=== PATIENT | male | born 2000 | race African-American/Black ===

== ENCOUNTER 2025-04-03 10:58 | Emergency (ER) | payer OTHER ==
[~2025-04-03] VITALS: Ht 177.8 cm; Wt 82.0 kg
[2025-04-03 11:04] VITALS: TEMP 36.9; O2SAT 97
[2025-04-03 13:04] LABS: BASOPHILS % 0.8 % (0.0-2.0); EOSINOPHILS % 2.4 % (0.0-5.0); HEMATOCRIT. 40.8 % (42.0-52.0); HEMOGLOBIN. 13.6 g/dL (14.0-18.0); LYMPHOCYTES % 23.2 % (20.0-50.0); MEAN PLATELET VOLUME 7.8 fl (7.4-10.4); MONOCYTES % 7.4 % (2.0-8.0); NEUTROPHILS % 66.2 % (40.0-76.0); PLATELET 209 x1000/uL (130-400); RED BLOOD CELL COUNT 4.20 mill/uL (4.7-6.1); RED CELL DISTRIBUTION WIDTH 12.9 % (11.6-14.6)
[2025-04-03 13:14] LABS: CLARITY URINE CLEAR (CLEAR); COLOR URINE YELLOW (YELLOW); GLUCOSE URINE NEGATIVE (NEGATIVE); KETONES URINE NEGATIVE (NEGATIVE); LEUKOCYTE ESTERASE URINE NEGATIVE (NEGATIVE); NITRITE URINE NEGATIVE (NEGATIVE); OCCULT BLOOD URINE NEGATIVE (NEGATIVE); PH URINE 8.0 (4.5-8.0); PROTEIN URINE NEGATIVE (NEGATIVE); SPECIFIC GRAVITY URINE 1.005 (1.005-1.030); UROBILINOGEN URINE 0.2 E.U./dL (0.2-1.0)
[2025-04-03 13:19] LABS: CREATININE 1.2 mg/dL (0.6-1.3); UREA NITROGEN BLOOD 9 mg/dL (9-23)
[2025-04-03 13:20] LABS: ETHANOL BLOOD < 10 mg/dL (<10)
[2025-04-03 13:48] VITALS: BP 128/82; PULSE 72; RESP 16; O2SAT 100
[2025-04-03 13:51] LABS: *AMPHETAMINES SCREEN URINE NEGATIVE (NEGATIVE); *BARBITURATES SCREEN URINE NEGATIVE (NEGATIVE); *BENZODIAZEPINES SCREEN URINE NEGATIVE (NEGATIVE); *COCAINE SCREEN URINE NEGATIVE (NEGATIVE); METHADONE URINE SCREEN NEGATIVE (NEGATIVE)
[2025-04-03 13:52] LABS: CANNABINOID URINE SCREEN NEGATIVE (NEGATIVE); ECSTASY MDMA SCREEN URINE NEGATIVE (NEGATIVE); OPIATES URINE SCREEN NEGATIVE (NEGATIVE); PHENCYCLIDINE URINE SCREEN NEGATIVE (NEGATIVE)
== END 2025-04-03 13:50 | disposition home or self-care (01) ==
LOC: ER 12:53
DX: F44.5 Conversion disorder with seizures or convulsions (principal); Z79.899 Other long term (current) drug therapy; W07.XXXA Fall from chair, initial encounter; Y93.89 Activity, other specified; Y92.89 Other specified places as the place of occurrence of the external cause; Y99.8 Other external cause status
CPT/HCPCS: 36415; 80048; 80305; 80320; 81003; 85025; 93005; 99284; G0480